=== PATIENT | female | born 1985 | race Hispanic/Latino ===

== ENCOUNTER 2022-11-29 17:47 | Observation (INO) | payer OTHER ==
[~2022-11-29] VITALS: Ht 149.9 cm; Wt 92.5 kg
[2022-11-29 18:05] VITALS: PULSE 91; RESP 16; O2SAT 98
[2022-11-29] MEDS ORDERED: ACET500P24 PO (20:00)
[2022-11-29] MEDS ORDERED: PNV1TABL62 PO (20:00)
[2022-11-29 20:29] LABS: APPEARANCE,URINE CLEAR (CLEAR); BILIRUBIN,URINE NEGATIVE (NEGATIVE); COLOR,URINE LIGHT-YELLOW (YELLOW); GLUCOSE, URINE (UA) NEGATIVE (NEGATIVE); KETONES,URINE 5 mg/dL (NEGATIVE); LEUKOCYTE ESTERASE ,URINE NEGATIVE Leu/uL (NEGATIVE); NITRATE,URINE NEGATIVE (NEGATIVE); PROTEIN,URINE 20 mg/dL (NEGATIVE)
[2022-11-29 20:34] LABS: ADD UA MICROSCOPIC YES; BACTERIA,URINE RARE /HPF (None Seen); MUCUS,URINE RARE LPF (None Seen); SQUAMOUS EPITHELIAL CELL,UR MOD /HPF (0-2); WBC,URINE 0-1 /HPF (0-1)
[2022-11-29 20:35] LABS: AMPHET/METH SCREEN,URINE NEGATIVE (NEGATIVE); BARBITURATE SCREEN, URINE NEGATIVE (NEGATIVE); BENZODIAZEPINES SCREEN,URINE NEGATIVE (NEGATIVE); CANNABINOID SCREEN,URINE NEGATIVE (NEGATIVE); COCAINE SCREEN,URINE NEGATIVE (NEGATIVE); OPIATE SCREEN,URINE NEGATIVE (NEGATIVE); PHENCYCLIDINE SCREEN,URINE NEGATIVE (NEGATIVE)
[2022-11-29] MEDS ORDERED: LACTATED RINGERS 1000ML 1,000 ML IV PRN (21:00)
[2022-11-29] MEDS: LACTATED RINGERS 1000ML 1,000 ML IV PRN ×2 (21:22→21:58)
[2022-11-29 22:16] VITALS: BP 102/61
[2022-11-30] MEDS: LACTATED RINGERS 1000ML 1,000 ML IV PRN (03:34)
== END 2022-11-30 08:50 | disposition home or self-care (01) ==
LOC: EDH 17:47 → LDH 19:43
PROVIDERS: ADMIT Obstetrics & Gynecology; ATTEND Obstetrics & Gynecology
DX: O26.892 Other specified pregnancy related conditions, second trimester (principal); R10.9 Unspecified abdominal pain; O99.891 Other specified diseases and conditions complicating pregnancy; M54.50 Low back pain, unspecified; O99.512 Diseases of the respiratory system complicating pregnancy, second trimester; J45.909 Unspecified asthma, uncomplicated; O34.219 Maternal care for unspecified type scar from previous cesarean delivery; Z3A.27 27 weeks gestation of pregnancy; V89.2XXA Person injured in unspecified motor-vehicle accident, traffic, initial encounter; Y93.89 Activity, other specified; Y92.89 Other specified places as the place of occurrence of the external cause; Y99.8 Other external cause status
CPT/HCPCS: 96360; 96361 ×3; 99284; 80305; 81001; 76805; G0378 ×12; J7120 ×3